=== PATIENT | female | born 2000 | race African-American/Black ===

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

== ENCOUNTER 2020-08-03 14:15 | Emergency (ER) | payer BC ==
[~2020-08-03] VITALS: Ht 160 cm; Wt 56.2 kg
[~2020-08-03 14:15] MED LIST: AUGMENTIN 875-1 EACH PO
== END 2020-08-03 16:32 | disposition home or self-care (01) ==
LOC: ER 14:22
DX: S00.83XA Contusion of other part of head, initial encounter (principal); V43.52XA Car driver injured in collision with other type car in traffic accident, initial encounter; Y92.488 Other paved roadways as the place of occurrence of the external cause; F90.9 Attention-deficit hyperactivity disorder, unspecified type; F32.9 Major depressive disorder, single episode, unspecified
CPT/HCPCS: 70450; 99283

== ENCOUNTER 2020-09-24 11:56 | Emergency (ER) | payer BC ==
[~2020-09-24] VITALS: Ht 162.6 cm; Wt 61.2 kg
[2020-09-24] MEDS ORDERED: TETANUS/DIPHTHERIA TOX ADULT 0.5 ML SYR IM ONE (14:00)
[2020-09-24 14:40] VITALS: BP 110/70
== END 2020-09-24 14:41 | disposition home or self-care (01) ==
LOC: ER 12:20
DX: S61.411A Laceration without foreign body of right hand, initial encounter (principal); W25.XXXA Contact with sharp glass, initial encounter; Y93.89 Activity, other specified; Z23 Encounter for immunization; F17.210 Nicotine dependence, cigarettes, uncomplicated; F12.90 Cannabis use, unspecified, uncomplicated
CPT/HCPCS: 90471; 90714; 99283

== ENCOUNTER 2021-01-04 22:18 | Emergency (ER) | payer BC ==
[~2021-01-04] VITALS: Ht 162.6 cm; Wt 61.2 kg
== END 2021-01-04 22:58 | disposition short-term general hospital (02) ==
LOC: ER 22:53
DX: R10.9 Unspecified abdominal pain (principal)

== ENCOUNTER → 2021-01-06 | Outpatient (CLI) | payer BC | LOC: US 09:35 | PROVIDERS: ATTEND Urology | DX: N18.9 Chronic kidney disease, unspecified (principal) | CPT/HCPCS: 76770 ==

== ENCOUNTER → 2021-02-08 | Outpatient (CLI) | payer BC ==
[~2021-02-08] MED LIST changes: +FUROSEMIDE INJ 10 MG/ML 4 ML VIAL ONE
== END ==
LOC: NM 09:44
PROVIDERS: ATTEND Urology
DX: N13.30 Unspecified hydronephrosis (principal)
CPT/HCPCS: 78708; 81025; A9562; J1940

== ENCOUNTER 2021-06-21 12:56 | Emergency (ER) | payer BC ==
[~2021-06-21] VITALS: Ht 160 cm; Wt 70.8 kg
[~2021-06-21 12:56] MED LIST changes: -FUROSEMIDE INJ 10 MG/ML 4 ML VIAL ONE
[2021-06-21] MEDS ORDERED: DOXYCYCLINE HY100 MG PO (13:43)
== END 2021-06-21 13:55 | disposition home or self-care (01) ==
LOC: FSED 13:11
DX: R59.1 Generalized enlarged lymph nodes (principal); F90.9 Attention-deficit hyperactivity disorder, unspecified type
CPT/HCPCS: 99282

== ENCOUNTER 2021-07-11 13:22 | Emergency (ER) | payer BC ==
[~2021-07-11] VITALS: Ht 160 cm; Wt 70.8 kg
[~2021-07-11 13:22] MED LIST changes: +DOXYCYCLINE HY100 MG PO
== END 2021-07-11 13:48 | disposition home or self-care (01) ==
LOC: ER 13:25
DX: K11.6 Mucocele of salivary gland (principal); N28.9 Disorder of kidney and ureter, unspecified; F90.9 Attention-deficit hyperactivity disorder, unspecified type
CPT/HCPCS: 99283

== ENCOUNTER → 2021-07-19 | Outpatient (CLI) | payer BC | LOC: NM 06:25 | PROVIDERS: ATTEND Urology | DX: N13.30 Unspecified hydronephrosis (principal) | CPT/HCPCS: 78707; A9562 ==

== ENCOUNTER 2023-01-30 02:57 | Emergency (ER) | payer BC ==
[~2023-01-30] VITALS: Ht 160 cm; Wt 75.3 kg
[~2023-01-30 02:57] MED LIST changes: +MACROBID 100 M100 MG PO
[2023-01-30] MEDS ORDERED: IBUPROFEN 100 MG/5 ML SUSP PO ONE (03:45)
[2023-01-30] MEDS ORDERED: IBUPROFEN 100 MG/5 ML SUSP ONE (03:47)
[2023-01-30 04:24] LABS: CLARITY,URINE CLOUDY (CLEAR); COLOR,URINE AMBER (YELLOW); KETONES,URINE 2+ (NEGATIVE); LEUKOCYTE ESTERASE ,URINE NEGATIVE (NEGATIVE); NITRITE,URINE NEGATIVE (NEGATIVE); PROTEIN,URINE DIPSTICK 2+ (NEGATIVE); URINE UROBILINOGEN 1 mg/dL (0.2 - 1)
[2023-01-30 04:33] LABS: BACTERIA,URINE MANY /HPF; EPITHELIAL CELLS,URINE FEW /LPF; RBC,URINE >50 /HPF (0-5)
[2023-01-30 05:26] VITALS: O2SAT 100
== END 2023-01-30 05:58 | disposition home or self-care (01) ==
LOC: ER 03:03
DX: B34.9 Viral infection, unspecified (principal); R51.9 Headache, unspecified; H57.13 Ocular pain, bilateral; Z11.52 Encounter for screening for COVID-19
CPT/HCPCS: 81001; 87400; 99283; U0002

== ENCOUNTER → 2024-06-11 | Outpatient (REF) | payer BC, MEDICARE ==
[~2024-06-11] MED LIST changes: +BENTYL10 MG/1 ML IV; +DICYCLOMINE HCL20 MG PO; +ONDANSETRON ODT4 MG PO
== END ==
LOC: US 12:09
PROVIDERS: ATTEND Urology
DX: N26.9 Renal sclerosis, unspecified (principal); N13.30 Unspecified hydronephrosis; N39.0 Urinary tract infection, site not specified; R31.21 Asymptomatic microscopic hematuria
CPT/HCPCS: 76770; 76857